=== PATIENT | female | born 1975 | race African-American/Black ===

== ENCOUNTER 2023-03-07 11:53 | Day surgery (SDC) | payer OTHER ==
[2023-03-03 10:20] VITALS: BMI 31.5
[2023-03-07] MEDS ORDERED: MIDAZOLAM HCL 2 MG/2 ML SINGLE DOSE VIAL ONE (13:48)
[2023-03-07] MEDS ORDERED: DEXAMETHASONE SOD PHOSPHATE 4 MG/1 ML VIAL ONE (13:48)
[2023-03-07] MEDS ORDERED: KETOROLAC TROMETHAMINE 30 MG/1 ML VIAL ONE (13:48)
[2023-03-07] MEDS ORDERED: ceFAZolin SODIUM 1 GM VIAL ONE (13:48)
[2023-03-07] MEDS ORDERED: ONDANSETRON 4 MG/2 ML VIAL ONE (13:48)
[2023-03-07] MEDS ORDERED: PROPOFOL 40 ML ONE (13:48)
[2023-03-07] MEDS ORDERED: LIDOCAINE HCL 1%, 10 MG/ML (20ML VIAL) ONE (13:51)
[2023-03-07] MEDS ORDERED: LIDOCAINE HCL 2% (20ML MULTI-DOSE VIAL) ONE (13:51)
[2023-03-07] MEDS ORDERED: BUPIVACAINE HCL/PF 0.5% (5MG/ML) 10 ML VIAL ONE (13:52)
[2023-03-07] MEDS ORDERED: PROPOFOL 20 ML ONE ×2 (14:56→15:38)
[2023-03-07] MEDS ORDERED: ONDANSETRON 4 MG/2 ML VIAL IVPUSH PRN (16:02)
[2023-03-07] MEDS ORDERED: oxyCODONE HCL 5 MG TABLET PO PRN (16:02)
[2023-03-07] MEDS ORDERED: LACTATED RINGERS SOLUTION 1,000 ML IV SCH (16:15)
[2023-03-07 17:00] VITALS: PULSE 76; RESP 16; TEMP 97.3
[2023-03-07 17:06] VITALS: BP 114/72
== END 2023-03-07 17:50 | disposition home or self-care (01) ==
LOC: FASU 11:53
PROVIDERS: ATTEND Podiatrist Foot Surgery
PROC: 0QSP04Z Reposition Left Metatarsal with Internal Fixation Device, Open Approach (ICD-10-PCS; principal; 2023-03-07 14:32)
PROC: 0SNQ0ZZ Release Left Toe Phalangeal Joint, Open Approach (ICD-10-PCS; 2023-03-07 14:32)
DX: M20.12 Hallux valgus (acquired), left foot (principal); M20.42 Other hammer toe(s) (acquired), left foot
CPT/HCPCS: 28285; 28299; C1713; 73630-TC-LT; 88305-TC; 88311-TC

== ENCOUNTER 2024-05-10 07:15 | Day surgery (SDC) | payer OTHER ==
[2024-05-02 16:00] VITALS: BMI 32.1
[2024-05-10 07:39] VITALS: RESP 16
[2024-05-10] MEDS ORDERED: LIDOCAINE HCL 2% (20ML MULTI-DOSE VIAL) ONE (07:40)
[2024-05-10] MEDS ORDERED: BUPIVACAINE HCL/PF 0.5% (5MG/ML) 10 ML VIAL ONE (07:40)
[2024-05-10] MEDS ORDERED: LIDOCAINE HCL/PF 2% SDV 5ML VIAL ONE (10:39)
[2024-05-10] MEDS ORDERED: MIDAZOLAM HCL 2 MG/2 ML SINGLE DOSE VIAL ONE (10:40)
[2024-05-10] MEDS ORDERED: PROPOFOL 20 ML ONE (10:40)
[2024-05-10] MEDS ORDERED: ceFAZolin SODIUM 1 GM VIAL ONE (10:53)
[2024-05-10] MEDS ORDERED: DEXAMETHASONE SOD PHOSPHATE 4 MG/1 ML VIAL ONE (10:53)
[2024-05-10] MEDS ORDERED: PROPOFOL 40 ML ONE (10:57)
[2024-05-10] MEDS ORDERED: KETOROLAC TROMETHAMINE 30 MG/1 ML VIAL ONE (11:02)
[2024-05-10] MEDS ORDERED: ONDANSETRON 4 MG/2 ML VIAL ONE (11:02)
[2024-05-10 12:01] VITALS: TEMP 96.8
[2024-05-10 14:12] VITALS: BP 113/68; PULSE 52
== END 2024-05-10 13:25 | disposition home or self-care (01) ==
LOC: FASU 07:15
PROVIDERS: ATTEND Podiatrist Foot Surgery
PROC: 0QSQ04Z Reposition Right Toe Phalanx with Internal Fixation Device, Open Approach (ICD-10-PCS; principal; 2024-05-10 09:45)
DX: M79.674 Pain in right toe(s) (principal); M20.5X1 Other deformities of toe(s) (acquired), right foot
CPT/HCPCS: 73630-TC-RT-FY; 88305-TC; 88311-TC